=== PATIENT | female | born 1955 | race Caucasian/White ===

== ENCOUNTER 2016-05-21 19:36 | Observation (INO) | payer BC, OTHER ==
[~2016-05-21] VITALS: Ht 161.3 cm; Wt 93.0 kg
[~2016-05-21 19:36] MED LIST: B12-1CHW INJ; DEXI30CA2 PO; FLOV44AE IN; LEVO.1 PO; MINO100T PO; SM A81CH PO; TRAM50 PO; ULTR50TA PO
[2016-05-21 19:37] VITALS: BP 140/67; PULSE 67; RESP 16; TEMP 97.4; O2SAT 98
[2016-05-21] MEDS ORDERED: ASPI81CH CHEW (20:00)
[2016-05-21] MEDS ORDERED: SYNT112T PO (20:00)
[2016-05-21] MEDS ORDERED: DEXI30CA PO (20:00)
[2016-05-21] MEDS ORDERED: MORPHINE SULFATE 4 MG/ML INJ IV PUSH ONE (20:30)
[2016-05-21] MEDS ORDERED: SODIUM CHLORIDE 0.9% FLUSH 5 ML FLUSH IVF PRN ×2 (20:30→22:15)
[2016-05-21] MEDS ORDERED: ASPIRIN 325 MG TAB PO ONE (20:30)
[2016-05-21 20:32] VITALS: RESP 16
--- NOTE | 2016-05-21 20:47 | RADRPT ---
EXAM DATE/TIME: 05/21/2016 20:40 [place] COMPARISON: No previous studies available for comparison. INDICATIONS : Short of Breath, Chest Discomfort. MEDICAL HISTORY : SURGICAL HISTORY : None. ENCOUNTER: Initial ACUITY: 1 day PAIN SCORE: 2/10 LOCATION: Bilateral chest FINDINGS: A single view of the chest demonstrates the lungs to be symmetrically aerated without evidence of mas s, infiltrate or effusion. The cardiomediastinal contours are unremarkable. Osseous structures are intact. CONCLUSION: No acute disease. Dilan Bashir MD on May 21, 2016 at 20:45 Board Certified Radiologist. This report was verified electronically.
--- NOTE | 2016-05-21 20:59 | PD ---
HPI Chief Complaint: Cardiac Complaint Time Seen by Provider: 19:51 Travel History International Travel<30 days: No Contact w/Intl Traveler<30days: No Traveled to known affect area: No History of Present Illness HPI 60-year-old female arrives with chest pain. It has been intermittently present since 3 days prior. She saw her PMD, Dr. Parra. An EKG was performed evidently revealing an arrhythmia. She describes that quality, and over 10 with retrosternal location and radiation to the right shoulder. Dyspnea on exertion is reported as well as a mild chest pain worse with exertion as well. Mild similar symptoms have been present for the past 3 weeks. At worst the pain is about 8/10. 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 She has no family history of coronary artery disease. She denies history hypertension hyperlipidemia and diabetes. Occasional bilateral ankle swelling is reported after prolonged standing. PFSH Past Medical History Arthritis: Yes Autoimmune Disease: No Blood Disorders: No Cancer: No Cardiovascular Problems: No Chemotherapy: No Diabetes: No Diminished Hearing: No Endocrine: No Gastrointestinal Disorders: Yes GERD: Yes Glaucoma: No Genitourinary: No Hypertension: Yes Immune Disorder: No Musculoskeletal: Yes (L4 L5 BULGING DISC) Neurologic: No Psychiatric: No Reproductive: No Respiratory: No Immunizations Current: No Radiation Therapy: No Sickle Cell Disease: No Thyroid Disease: Yes (LOW) Tetanus Vaccination: < 5 Years Influenza Vaccination: Yes Menopausal: Yes Past Surgical History AICD: No Arteriovenous Shunt: No Section: Yes Endocrine Surgery: Yes (THYROID DIAGNOSTICS NOT SURGERY) Gynecologic Surgery: Yes (DNC C SECTION) Hysterectomy: Yes Insulin Pump: No Joint Replacement: No Neurologic Surgery: No Pacemaker: No Tonsillectomy: Yes Other Surgery: Yes (LEFT ACHILLES TENDON REPAIR) Social History Alcohol Use: Yes (SOCIAL ONLY) Tobacco Use: No (QUIT 1988) Substance Use: No Allergies-Medications (Allergen,Severity, Reaction): Coded Allergies: Adhesives (Verified Allergy, Severe, RASH, 05/21/16) Bee Sting (Verified Allergy, Severe, SOB, 05/21/16) Levaquin (Verified Allergy, Severe, N/V, 05/21/16) Sulfa (Verified Allergy, Severe, NAUSEA AND RASH, 05/21/16) Tobramycin (Verified Allergy, Severe, EYE EDEMA, 05/21/16) Vancomycin (Verified Allergy, Severe, EYE EDEMA, 05/21/16) Celebrex (Verified Allergy, Mild, 05/21/16) Latex (Verified Allergy, Mild, Rash, 05/21/16) Lortab (Verified Allergy, Mild, NAUSEA, 05/21/16) Lidocaine (Verified Allergy, Unknown, 05/21/16) Vesicare (Verified Allergy, Unknown, 05/21/16) Reported Meds & Prescriptions Reported Meds & Active Scripts Active Reported Synthroid (Levothyroxine Sodium) 112 Mcg Tab 112 Mcg PO DAILY Dexilant (Dexlansoprazole) 30 Mg Cap 30 Mg PO DAILY Aspirin 81 Mg Chew 81 Mg CHEW DAILY Review of Systems Except as stated in HPI: all other systems reviewed are Neg General / Constitutional: No: Fever, Chills Cardiovascular: Positive: Chest Pain or Discomfort Respiratory: Positive: Shortness of Breath Physical Exam Narrative GENERAL: 60-year-old female pleasant SKIN: Warm and dry. HEAD: Atraumatic. Normocephalic. EYES: Pupils equal and round. No scleral icterus. No injection or drainage. ENT: No nasal bleeding or discharge. Mucous membranes pink and moist. NECK: Trachea midline. No JVD. CARDIOVASCULAR: Regular rhythm. Rate 63 RESPIRATORY: No accessory muscle use. Clear to auscultation. Breath sounds equal bilaterally. GASTROINTESTINAL: Abdomen soft, non-tender, nondistended. Hepatic and splenic margins not palpable. MUSCULOSKELETAL: No obvious deformities. No clubbing. No cyanosis. No edema. NEUROLOGICAL: Awake and alert. No obvious cranial nerve deficits. Motor grossly within normal limits. Normal speech. PSYCHIATRIC: Appropriate mood and affect; insight and judgment normal. Data Data Last Documented VS Vital Signs Date Time Temp Pulse Resp B/P Pulse Ox O2 Delivery O2 Flow Rate FiO2 05/21/16 20:32 16 05/21/16 20:32 99 Room Air 05/21/16 20:00 62 05/21/16 19:37 97.4 140/67 Vital signs reviewed Orders Electrocardiogram (05/21/16 20:29) Ckmb (Isoenzyme) Profile (05/21/16 20:29) Complete Blood Count With Diff (05/21/16 20:29) Comprehensive Metabolic Panel (05/21/16 20:29) Magnesium (Mg) (05/21/16 20:29) Prothrombin Time / Inr (Pt) (05/21/16 20:29) Act Partial Throm Time (Ptt) (05/21/16 20:29) Troponin I (05/21/16 20:29) Lipase (05/21/16 20:29) Chest, Single Ap (05/21/16 20:29) Ecg Monitoring (05/21/16 20:29) Bilateral Bp Monitoring (05/21/16 20:29) Iv Access Insert/Monitor (05/21/16 20:29) Oximetry (05/21/16 20:29) Oxygen Administration (05/21/16 20:29) Aspirin (Aspirin) (05/21/16 20:30) Morphine Inj (Morphine Inj) (05/21/16 20:30) Sodium Chloride 0.9% Flush (Ns Flush) (05/21/16 20:30) Activity Bed Rest With Brp (05/21/16 22:01) Vital Signs (Adult) Q4H (05/21/16 22:01) Cardiac Rhythm .As Directed (05/21/16 22:01) ^ Notify Dr: Other .PRN (05/21/16 22:01) ^ Notify Dr. Parameters (05/21/16 22:01) Resp Oxygen Nasal Cannula (05/21/16 ) Diet Npo (05/22/16 Breakfast) Ckmb (Isoenzyme) Profile (05/21/16 22:01) Ckmb (Isoenzyme) Profile (05/22/16 01:01) Troponin I (05/21/16 22:01) Troponin I (05/22/16 01:01) Electrocardiogram (05/21/16 22:01) Electrocardiogram (05/22/16 01:01) ^ Obtain (05/21/16 22:01) Sodium Chloride 0.9% Flush (Ns Flush) (05/21/16 22:15) Sodium Chloride 0.9% Flush (Ns Flush) (05/22/16 09:00) Morphine Inj (Morphine Inj) (05/21/16 22:15) Ondansetron Inj (Zofran Inj) (05/21/16 22:15) Metoprolol Tartrate (Lopressor) (05/21/16 22:15) Nitroglycerin Sl (Nitrostat Sl) (05/21/16 22:15) Temazepam (Restoril) (05/21/16 22:15) Alprazolam (Xanax) (05/21/16 22:15) Handicraft Or Hobby Shop Manager / Telemetry DIANA.Q8H (05/21/16 22:01) Admit Order (Ed Use Only) (05/21/16 22:01) Labs Laboratory Tests Test 05/21/16 20:30 White Blood Count 11.2 TH/MM3 Red Blood Count 4.29 MIL/MM3 Hemoglobin 12.6 GM/DL Hematocrit 36.4 % Mean Corpuscular Volume 84.8 FL Mean Corpuscular Hemoglobin 29.4 PG Mean Corpuscular Hemoglobin 34.7 % Concent Red Cell Distribution Width 13.3 % Platelet Count 298 TH/MM3 Mean Platelet Volume 10.0 FL Neutrophils (%) (Auto) 50.5 % Lymphocytes (%) (Auto) 40.8 % Monocytes (%) (Auto) 6.5 % Eosinophils (%) (Auto) 1.4 % Basophils (%) (Auto) 0.8 % Neutrophils # (Auto) 5.6 TH/MM3 Lymphocytes # (Auto) 4.6 TH/MM3 Monocytes # (Auto) 0.7 TH/MM3 Eosinophils # (Auto) 0.2 TH/MM3 Basophils # (Auto) 0.1 TH/MM3 CBC Comment DIFF FINAL Differential Comment Prothrombin Time 10.4 SEC Prothromb Time International 0.9 RATIO Ratio Activated Partial 26.3 SEC Thromboplast Time Sodium Level 140 MEQ/L Potassium Level 3.9 MEQ/L Chloride Level 103 MEQ/L Carbon Dioxide Level 29.2 MEQ/L Anion Gap 8 MEQ/L Blood Urea Nitrogen 17 MG/DL Creatinine 0.87 MG/DL Estimat Glomerular Filtration 67 ML/MIN Rate Random Glucose 89 MG/DL Calcium Level 8.9 MG/DL Magnesium Level 2.2 MG/DL Total Bilirubin 0.5 MG/DL Aspartate Amino Transf 18 U/L (AST/SGOT) Alanine Aminotransferase 47 U/L (ALT/SGPT) Alkaline Phosphatase 115 U/L Total Creatine Kinase 54 U/L Troponin I LESS THAN 0.02 NG/ML Total Protein 7.6 GM/DL Albumin 3.9 GM/DL Lipase 163 U/L MDM Medical Decision Making Medical Screen Exam Complete: Yes Emergency Medical Condition: Yes Medical Record Reviewed: Yes Differential Diagnosis NSTEMI, unstable angina, coronary vasospasm, PE, PTX, aortic dissection, pericarditis, myocarditis, endocarditis, PNA, esophageal disease, aneurysm, musculoskeletal etiologies, anxiety, cocaine/sympathomimetic abuse Narrative Course CBC & BMP Diagram 05/21/16 20:30 LFTs normal Lipase 163 Troponin less than 0.02 EKG: Rate 63 ischemic injury pattern normal axis Chest x-ray: No acute disease is observed Patient's chest to be further investigated in the chest pain center. Diagnosis Primary Impression: Chest pain Qualified Code: R07.9 - Chest pain, unspecified type Admitting Information Admitting Physician Requests: Observation Estiven Beyer MD May 21, 2016 20:59
[2016-05-21 21:02] LABS: AUTOMATED NEUTROPHIL # 5.6 TH/MM3 (1.8-7.7); BASOPHIL # 0.1 TH/MM3 (0-0.2); BASOPHIL % 0.8 % (0.0-2.0); EOSINOPHIL # 0.2 TH/MM3 (0-0.4); EOSINOPHIL % 1.4 % (0.0-4.0); HEMATOCRIT 36.4 % (35.0-46.0); HEMO FLAGS DIFF FINAL; LYMPH % 40.8 % (9.0-44.0); LYMPHOCYTE # 4.6 TH/MM3 (1.0-4.8); MEAN CELL VOLUME 84.8 FL (80.0-100.0); MEAN CORPUSCULAR HEMOGLOBIN 29.4 PG (27.0-34.0); MEAN CORPUSCULAR HGB CONC 34.7 % (32.0-36.0); MONO % 6.5 % (0.0-8.0); NEUT % 50.5 % (16.0-70.0); PLATELET COUNT 298 TH/MM3 (150-450); RED BLOOD COUNT 4.29 MIL/MM3 (4.00-5.30); RED CELL DISTRIBUTION WIDTH 13.3 % (11.6-17.2); WHITE BLOOD COUNT 11.2 TH/MM3 (4.0-11.0)
[2016-05-21 21:15] LABS: ANION GAP 8 MEQ/L (5-15); AST (GOT) 18 U/L (15-37); BICARBONATE 29.2 MEQ/L (21.0-32.0); BLOOD UREA NITROGEN 17 MG/DL (7-18); CHLORIDE 103 MEQ/L (98-107); GLOMERULAR FILTRATION RATE 67 ML/MIN (>89); MAGNESIUM 2.2 MG/DL (1.5-2.5); POTASSIUM 3.9 MEQ/L (3.5-5.1); SODIUM (NA) 140 MEQ/L (136-145)
[2016-05-21 21:20] LABS: ALKALINE PHOSPHATASE 115 U/L (45-117); ALT (GPT) 47 U/L (10-53); CREATINE KINASE 54 U/L (26-192); TOTAL BILIRUBIN ADULT 0.5 MG/DL (0.2-1.0)
[2016-05-21 21:58] LABS: APTT (PATIENT) 26.3 SEC (24.3-30.1); INTERNATIONAL NORMALIZED RATIO 0.9 RATIO; PROTHROMBIN TIME - PATIENT 10.4 SEC (9.8-11.6)
[2016-05-21 22:12] VITALS: BP 135/68; PULSE 62; RESP 16; O2SAT 97; O2SAT 98
[2016-05-21] MEDS ORDERED: METOPROLOL TARTRATE 25 MG TAB PO SCH (22:15)
[2016-05-21] MEDS ORDERED: NITROGLYCERIN 0.4 MG SL 25 TABS/BTL SL PRN (22:15)
[2016-05-21] MEDS ORDERED: ALPRAZolam 0.25 MG TAB PO PRN (22:15)
[2016-05-21] MEDS ORDERED: MORPHINE SULFATE 4 MG/ML INJ IV PRN (22:15)
[2016-05-21] MEDS ORDERED: TEMAZEPAM 15 MG CAP PO PRN (22:15)
[2016-05-21] MEDS ORDERED: ONDANSETRON HCL 4 MG/2 ML VIAL IV PRN (22:15)
[2016-05-22 00:15] LABS: CREATINE KINASE 43 U/L (26-192)
[2016-05-22 00:20] VITALS: BP 121/63; PULSE 59; RESP 18; TEMP 98.6; O2SAT 95
[2016-05-22 02:32] VITALS: BP 100/53; PULSE 59; RESP 18; TEMP 97.6; O2SAT 94
[2016-05-22 02:45] VITALS: PULSE 66
[2016-05-22 03:51] LABS: CREATINE KINASE 43 U/L (26-192)
[2016-05-22 04:00] VITALS: PULSE 66
[2016-05-22 07:00] VITALS: BP 113/64; PULSE 58; RESP 16; TEMP 97.6; O2SAT 94
[2016-05-22] MEDS ORDERED: PANTOPRAZOLE SOD 40 MG DELAYED RELEASE TAB PO SCH (09:00)
[2016-05-22] MEDS ORDERED: SODIUM CHLORIDE 0.9% FLUSH 5 ML FLUSH IVF SCH (09:00)
[2016-05-22] MEDS ORDERED: LEVOTHYROXINE SODIUM 112 MCG TAB PO SCH (09:00)
--- NOTE | 2016-05-22 09:44 | HHI.HP ---
[facility] Primary Care Physician Irasema Parra MD Chief Complaint Chest pain History of Present Illness 60-year-old patient with intermittent chest pain for 3 weeks. Saw her primary care provider on Wednesday. Lab work ordered and EKG was completed. Dr. Parra office nurse called her on . She was notify her EKG was irregular. At that time she was not directed to come to the emergency room. She continued to work. Later evening she developed substernal chest pain described as "aching." Occasional radiation to generalize chest. There is no pattern such as exertional or nonexertional. Associated symptoms included shortness of breath, headache, and nausea. No diaphoresis or vomiting. No known precipitating or relieving factors. States last evening she continued to have chest pressure that lasted approximately 4 hours. Breathing did not make pain better or worse, nor did movement. She called Dr. Parra and her physician requested her to come to the emergency room for further evaluation. Last night's episode was more intense and more of a "heavy feeling." No current chest discomfort. Endorses situational stress. 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 Review of Systems General: No fatigue,weakness, fever, chills, recent travel, recent illness, or change in appetite. Has been trying to lose weight and exercise. Following a low carbohydrate diet. HEENT: No BORJA, no vision changes, no nasal congestion or drainage. Reports dysphasia. Follows with [facility], Dr. Iverson, for GERD and esophageal stretching. CV: No current CP or pressure. No intermittent leg pain,dizziness. Occasionally feels palpitations. Palpitations do not happen with chest discomfort. Endorses chest palpitations, intermittently for years. RESP: No SOB, cough, wheeze, recent URI GI: No nausea, vomiting, bowel changes. Chronic loose stools, follows with GI. No abdominal pain, distention, melena, blood in the stool. No change in appetite, no unintentional weight gain or weight loss : No dysuria, urgency, frequency, or hematuria EXT: No lower leg edema, no paraesthesias MS: No discomfort or change in ROM. NEURO: No change in memory, dizziness, difficulty with balance, LOC, motor/ sensory deficits PSYCH: No anxiety or depression. Reports situational stress. SKIN: No rashes, no concerning lesions Past Family Social History Allergies: Coded Allergies: Adhesives (Verified Allergy, Severe, RASH, 05/21/16) Bee Sting (Verified Allergy, Severe, SOB, 05/21/16) Levaquin (Verified Allergy, Severe, N/V, 05/21/16) Sulfa (Verified Allergy, Severe, NAUSEA AND RASH, 05/21/16) Tobramycin (Verified Allergy, Severe, EYE EDEMA, 05/21/16) Vancomycin (Verified Allergy, Severe, EYE EDEMA, 05/21/16) Celebrex (Verified Allergy, Mild, 05/21/16) Latex (Verified Allergy, Mild, Rash, 05/21/16) Lortab (Verified Allergy, Mild, NAUSEA, 05/21/16) Lidocaine (Verified Allergy, Unknown, 05/21/16) Vesicare (Verified Allergy, Unknown, 05/21/16) Past Medical History GERD, hypothyroidism, hard hearing in left ear, multiple esophageal dilatations Past Surgical History Cholecystectomy Reported Medications Active Reported Synthroid (Levothyroxine Sodium) 112 Mcg Tab 112 Mcg PO DAILY Dexilant (Dexlansoprazole) 30 Mg Cap 30 Mg PO DAILY Aspirin 81 Mg Chew 81 Mg CHEW DAILY Active Ordered Medications Current Medications Medications (Trade) Dose Ordered Sig/Aung Route Start Time Stop Time Status Last Admin (Morphine Inj) 2 mg Q4H PRN IV 05/21/16 22:15 (Zofran Inj) 4 mg Q6H PRN IV 05/21/16 22:15 (Nitrostat Sl) 0.4 mg Q5M PRN SL 05/21/16 22:15 (Restoril) 15 mg HS PRN PO 05/21/16 22:15 (Xanax) 0.25 mg Q8H PRN PO 05/21/16 22:15 (Synthroid) 112 mcg DAILY@0600 PO 05/22/16 09:00 (Protonix) 40 mg DAILY PO 05/22/16 09:00 Family History No early onset family cardiovascular disease. 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 Remote smoker, quit 20 years ago, alcohol rarely, denies any illegal drug use. She is active. Walks 10,000 steps daily. Weekends walks approximately 7 miles/ daily. Past cardiac testing No recent cardiac stress test. While living in [place] she had a stress test is unremarkable (2002). Has never had a cardiac catheterization. Does not require a director social. Physical Exam Vital Signs Vital Signs Date Time Temp Pulse Resp B/P Pulse Ox O2 Delivery O2 Flow Rate FiO2 05/22/16 07:00 97.6 58 16 113/64 94 05/22/16 04:00 66 05/22/16 02:45 66 05/22/16 02:32 97.6 59 18 100/53 94 05/22/16 00:20 98.6 59 18 121/63 95 05/21/16 22:12 62 16 135/68 97 Room Air 05/21/16 22:12 98 05/21/16 20:32 16 05/21/16 20:32 99 Room Air 05/21/16 20:00 62 16 99 Room Air 05/21/16 19:37 97.4 67 16 140/67 98 Room Air Physical Exam GENERAL: Alert WN, WD, NAD, pleasant, female HEAD: NC, AT EYES: Sclera clear, conjunctiva without injection, pupils equal and round ENT: Mucous membranes pink and moist NECK: Supple, no masses, trachea midline CV: RRR, without murmur, rub, gallop, no JVD, S1-S2 no S3-S4. No carotid bruits RESP: Clear lungs throughout bilateral, no crackles, wheeze, rhonchi, symmetrical chest rise, nonlabored, able to speak in full sentences ABD: Soft, NT, ND, no masses, positive bowel tones EXT: Pulses +24, +1 dependent edema MS: Normal tone 4 extremities, nontender, no obvious deformities, full range of motion NEURO: CN II through CN XII grossly intact, motor strength 5/5, gait WNL PSYCH: A+O 3, pleasant affect, appropriate speech, appropriate mood and affect , insight and judgment SKIN: Normal turgor, normal texture, no lesions, no rashes, brisk cap refill Laboratory Laboratory Tests Test 05/21/16 05/21/16 05/22/16 20:30 23:25 02:55 White Blood Count 11.2 Red Blood Count 4.29 Hemoglobin 12.6 Hematocrit 36.4 Mean Corpuscular Volume 84.8 Mean Corpuscular Hemoglobin 29.4 Mean Corpuscular Hemoglobin 34.7 Concent Red Cell Distribution Width 13.3 Platelet Count 298 Mean Platelet Volume 10.0 Neutrophils (%) (Auto) 50.5 Lymphocytes (%) (Auto) 40.8 Monocytes (%) (Auto) 6.5 Eosinophils (%) (Auto) 1.4 Basophils (%) (Auto) 0.8 Neutrophils # (Auto) 5.6 Lymphocytes # (Auto) 4.6 Monocytes # (Auto) 0.7 Eosinophils # (Auto) 0.2 Basophils # (Auto) 0.1 CBC Comment DIFF FINAL Differential Comment Prothrombin Time 10.4 Prothromb Time International 0.9 Ratio Activated Partial 26.3 Thromboplast Time Sodium Level 140 Potassium Level 3.9 Chloride Level 103 Carbon Dioxide Level 29.2 Anion Gap 8 Blood Urea Nitrogen 17 Creatinine 0.87 Estimat Glomerular Filtration 67 Rate Random Glucose 89 Calcium Level 8.9 Magnesium Level 2.2 Total Bilirubin 0.5 Aspartate Amino Transf 18 (AST/SGOT) Alanine Aminotransferase 47 (ALT/SGPT) Alkaline Phosphatase 115 Total Creatine Kinase 54 43 43 Troponin I LESS THAN 0.02 LESS THAN 0.02 LESS THAN 0.02 Total Protein 7.6 Albumin 3.9 Lipase 163 Result Diagram: 05/21/16202905/21/162029 Imaging Last Impressions Chest X-Ray 05/21/162028 Signed Impressions: Service Date/Time: April 20:40 - CONCLUSION: No acute disease. Dilan Bashir MD Course EKGs 3 EKG show normal sinus bradycardic sinus rhythm. No ST or T-segment changes. Assessment and Plan Assessment and Plan #1 [facility]. Was monitored overnight, ruled out with 3 sets of EKGs and cardiac enzymes. Was seen and evaluated by Dr. Mildred Kennedy. [employer] Laborer discussed with patient next step would be to complete a cardiac stress test. She is agreeable to this plan of care. Naturally if stress test is unremarkable she will be later discharged home. #2 GERDreorder DEXA lot. Encouraged to follow-up with GI regarding GERD and possible need for esophageal dilatation. #3 Hypothyroidismreorder Synthroid. Follow with primary care provider. Marisa Silver May 22, 2016 09:44
--- NOTE | 2016-05-22 10:27 | HHI.DCPOC ---
Discharge Care Plan Diagnosis: (1) Atypical chest pain Goals to Promote Your Health * To prevent worsening of your condition and complications * To maintain your health at the optimal level Directions to Meet Your Goals Take your medications as prescribed Follow your dietary instruction Follow activity as directed Keep your appointments as scheduled Take your immunizations and boosters as scheduled If your symptoms worsen call your PCP, if no PCP go to Urgent Care Center or Emergency Room Smoking is Dangerous to Your Health. Avoid second hand smoke Call the 24-hour hour crisis hotline for domestic abuse at Marisa Silver May 22, 2016 10:27
--- NOTE | 2016-05-22 15:43 | EKG ---
Date Performed: 05/21/2016 Time Performed: 19:58:15 PTAGE: 60 years EKG: Sinus rhythm POSSIBLE RIGHT VENTRICULAR CONDUCTION DELAY BORDERLINE ECG Since PREVIOUS TRACING , no significant change noted PREVIOUS TRACIN05/30/2009 15.05 DOCTOR: Mildred Kennedy Interpretating Date/Time 05/22/2016 15:41:27
--- NOTE | 2016-05-22 15:44 | EKG ---
Date Performed: 05/22/2016 Time Performed: 00:07:29 PTAGE: 60 years EKG: SINUS BRADYCARDIA POSSIBLE RIGHT VENTRICULAR CONDUCTION DELAY BORDERLINE ECG Since PREVIOUS TRACING , no significant change noted PREVIOUS TRACIN05/21/2016 19.58 DOCTOR: Mildred Kennedy Interpretating Date/Time 05/22/2016 15:41:58
--- NOTE | 2016-05-22 15:44 | EKG ---
Date Performed: 05/22/2016 Time Performed: 02:38:24 PTAGE: 60 years EKG: Sinus rhythm POSSIBLE RIGHT VENTRICULAR CONDUCTION DELAY BORDERLINE ECG Since PREVIOUS TRACING , no significant change noted PREVIOUS TRACIN05/22/2016 00.07 DOCTOR: Mildred Kennedy Interpretating Date/Time 05/22/2016 15:42:09
--- NOTE | 2016-05-22 15:45 | TR ---
Date Performed: 05/22/2016 Time Performed: 10:02:59 DOCTOR: Mildred Kennedy DRUG LIST: CLINICAL HISTORY: CHEST PAIN REASON FOR TEST: REASON FOR ENDING: OBSERVATION: CONCLUSION: Marty protocol completed. Stopped sec to reaching target heart rate and leg fatigue. Maximum PC=669 % Target HR Achieved=89.0% Maximum OY=172/76 Total Exercise Time=3:25. J point depres terence in inferior leads, upsloping. Chest discomfort before exam 04/07, at peak 10. Normal bp respons e. Fair exercise tolerance. Recovery unremarkable and chest pressure improved during recovery. COMMENTS:
== END 2016-05-22 11:44 | disposition home or self-care (01) ==
LOC: NEPE 19:36 → NEDA 22:04 → NEPGCP 23:29
PROVIDERS: ADMIT Internal Medicine Interventional Cardiology; ATTEND Internal Medicine Interventional Cardiology
DX: R07.2 Precordial pain (principal); K21.9 Gastro-esophageal reflux disease without esophagitis; I10 Essential (primary) hypertension; R06.00 Dyspnea, unspecified; E03.9 Hypothyroidism, unspecified; M19.90 Unspecified osteoarthritis, unspecified site; Z79.82 Long term (current) use of aspirin
CPT/HCPCS: 71010; 80053; 82550; 83690; 83735; 84484; 85025; 85610; 85730; 93005; 93017; 99285; G0378

== ENCOUNTER 2017-02-26 18:34 | Emergency (ER) | payer OTHER ==
[~2017-02-26] VITALS: Ht 160 cm; Wt 89.4 kg
[~2017-02-26 18:34] MED LIST changes: +ASPI-516 CHEW; -B12-1CHW INJ; +DEXI30CA PO; -DEXI30CA2 PO; -FLOV44AE IN; -LEVO.1 PO; -MINO100T PO; -SM A81CH PO; +SYNT112T PO; -TRAM50 PO; -ULTR50TA PO
[2017-02-26 18:50] VITALS: BP 128/66; PULSE 72; RESP 16; TEMP 98; O2SAT 96
[2017-02-26] MEDS ORDERED: LEVO125T4 PO (19:02)
[2017-02-26] MEDS ORDERED: FAMOTIDINE 20 MG TAB PO ONE (20:00)
[2017-02-26] MEDS ORDERED: diphenhydrAMINE HCL 50 MG/ML VIAL IM ONE (20:00)
[2017-02-26] MEDS ORDERED: DEXAMETHASONE SOD PHOS 4 MG/ML VIAL IM ONE (20:00)
--- NOTE | 2017-02-26 20:15 | PD ---
HPI Chief Complaint: Skin Problem Time Seen by Provider: 19:56 Travel History International Travel<30 days: No Contact w/Intl Traveler<30days: No Traveled to known affect area: No History of Present Illness HPI 61-year-old female with a pruritic erythematous rash on her distal forearms and left side of her face since last night. Patient denies any new medications, new foods or change in soaps, detergents, body care products. She denies oral swelling, difficulty swallowing, change in voice, shortness of breath or wheezing. She has had multiple allergic reactions in the past. She had one episode of anaphylaxis after the lidocaine. Symptom severity is mild. She took one dose of Benadryl last night which helped with the itching. PFSH Past Medical History Hx Anticoagulant Therapy: Yes (asa 81mg) Arthritis: Yes Autoimmune Disease: No Blood Disorders: No Heart Rhythm Problems: No Cancer: No Cardiac Catheterization: No Cardiovascular Problems: Yes High Cholesterol: No Chemotherapy: No Congestive Heart Failure: No Diabetes: No Diminished Hearing: No Endocrine: No Gastrointestinal Disorders: Yes GERD: Yes Glaucoma: No Genitourinary: No Hypertension: Yes Immune Disorder: No Musculoskeletal: Yes (L4 L5 BULGING DISC) Neurologic: No Psychiatric: No Reproductive: No Respiratory: No Immunizations Current: No Radiation Therapy: No Sickle Cell Disease: No Thyroid Disease: Yes (LOW) Tetanus Vaccination: < 5 Years Influenza Vaccination: Yes ?: Not Menopausal: Yes Past Surgical History AICD: No Arteriovenous Shunt: No Section: Yes Coronary Artery Bypass Graft: No Endocrine Surgery: Yes (THYROID DIAGNOSTICS NOT SURGERY) Gynecologic Surgery: Yes (DNC C SECTION) Hysterectomy: Yes Insulin Pump: No Joint Replacement: No Neurologic Surgery: No Pacemaker: No Tonsillectomy: Yes Other Surgery: Yes (LEFT ACHILLES TENDON REPAIR) Social History Alcohol Use: Yes (SOCIAL ONLY) Tobacco Use: No (QUIT 1988) Substance Use: No Allergies-Medications (Allergen,Severity, Reaction): Coded Allergies: Sulfa (Sulfonamide Antibiotics) (Unverified Allergy, Severe, NAUSEA AND RASH, 02/26/17) adhesive (Unverified Allergy, Severe, RASH, 02/26/17) bee venom protein (honey bee) (Unverified Allergy, Severe, SOB, 02/26/17) levofloxacin (Unverified Allergy, Severe, N/V, 02/26/17) tobramycin (Unverified Allergy, Severe, EYE EDEMA, 02/26/17) vancomycin (Unverified Allergy, Severe, EYE EDEMA, 02/26/17) acetaminophen (Unverified Allergy, Mild, NAUSEA, 02/26/17) celecoxib (Unverified Allergy, Mild, 02/26/17) hydrocodone (Unverified Allergy, Mild, NAUSEA, 02/26/17) latex (Unverified Allergy, Mild, Rash, 02/26/17) lidocaine (Unverified Allergy, Unknown, 02/26/17) solifenacin (Unverified Allergy, Unknown, 02/26/17) Reported Meds & Prescriptions Reported Meds & Active Scripts Active Epinephrine Inj Pack (Epinephrine) 0.15 Mg/0.15 Ml Pfpen 0.15 Mg SQ ONCE PRN Pepcid (Famotidine) 20 Mg Tab 20 Mg PO BID Prednisone 20 Mg Tab 40 Mg PO DAILY Take 40 mg (2 tablets) daily for 5 days Reported Levothyroxine (Levothyroxine Sodium) 125 Mcg Tab 125 Mcg PO DAILY Aspirin 81 Mg Chew 81 Mg CHEW DAILY Review of Systems Except as stated in HPI: all other systems reviewed are Neg Physical Exam Narrative GENERAL: Alert well-appearing female in no distress. SKIN: Warm and dry. Confluent area of erythema to the distal anterior aspects of the forearms and left cheek. HEAD: Normocephalic. EYES: No scleral icterus. No injection or drainage. THROAT: No oropharyngeal swelling. Uvula is midline. Airway is patent. Normal voice. NECK: Supple, trachea midline. No JVD or lymphadenopathy. CARDIOVASCULAR: Regular rate and rhythm without murmurs, gallops, or rubs. RESPIRATORY: Breath sounds equal bilaterally. No accessory muscle use. No wheezing GASTROINTESTINAL: Abdomen soft, non-tender, nondistended. MUSCULOSKELETAL: No cyanosis, or edema. BACK: Nontender without obvious deformity. No CVA tenderness. Data Data Last Documented VS Vital Signs Date Time Temp Pulse Resp B/P (MAP) Pulse Ox O2 Delivery O2 Flow Rate FiO2 02/26/17 18:50 98.0 72 16 128/66 (86) 96 Orders Orders Dexamethasone Inj (Decadron Inj) (02/26/17 20:00) Diphenhydramine Inj (Benadryl Inj) (02/26/17 20:00) Famotidine (Pepcid) (02/26/17 20:00) Ed Discharge Order (02/26/17 20:36) [facility] Medical Decision Making Medical Screen Exam Complete: Yes Emergency Medical Condition: Yes Differential Diagnosis Irritant Contact dermatitis, allergic contact dermatitis, allergic reaction Narrative Course 61-year-old female here for evaluation of pruritic rash to her distal forearms and face since last night. Patient is well-appearing. No distress. No oropharyngeal swelling. The rash is localized to the distal aspect of her forearms and left face. Patient given Decadron 8 mg IM, Benadryl 50 mg IM, Pepcid and observed in the emergency room. Was observed in the emergency room. She reports symptom improvement. The erythema is much improved. She is stable and ready for discharge. She reports her EpiPen is and requesting a refill. Diagnosis Primary Impression: Rash and nonspecific skin eruption Referrals: Primary Care Physician Additional Instructions: Take Benadryl 25 mg every 6 hours as needed for itching. Follow-up with her primary doctor. Return to emergency department call 911 immediately developed new or worsening symptoms. Scripts Epinephrine Inj Pack (Epinephrine Inj Pack) 0.15 Mg/0.15 Ml Pfpen 0.15 MG SQ ONCE Y for ALLERGIC REACTION, #1 PACK Prov: Muna Eubanks 02/26/17 Famotidine (Pepcid) 20 Mg Tab 20 MG PO BID, #10 TAB 0 Refills Prov: Muna Eubanks 02/26/17 Prednisone (Prednisone) 20 Mg Tab 40 MG PO DAILY, #10 TAB 0 Refills Take 40 mg (2 tablets) daily for 5 days Prov: Muna Eubanks 02/26/17 Disposition: 01 DISCHARGE HOME Condition: Stable Muna Eubanks Feb 26, 2017 20:15
[2017-02-26] MEDS ORDERED: EPIN1INJ19 SQ (20:35)
[2017-02-26] MEDS ORDERED: FAMO1TAB37 PO (20:35)
[2017-02-26] MEDS ORDERED: PRED20 PO (20:35)
== END 2017-02-26 20:47 | disposition home or self-care (01) ==
LOC: PHEFT 18:34
DX: R21 Rash and other nonspecific skin eruption (principal); L29.9 Pruritus, unspecified; I10 Essential (primary) hypertension; E07.9 Disorder of thyroid, unspecified; Z79.82 Long term (current) use of aspirin; Z87.39 Personal history of other diseases of the musculoskeletal system and connective tissue; Z86.79 Personal history of other diseases of the circulatory system; Z87.19 Personal history of other diseases of the digestive system
CPT/HCPCS: 96372; 99284; J1100; J1200